=== PATIENT | male | born 1990 | race Caucasian/White ===

== ENCOUNTER 2020-12-14 13:11 | Emergency (ER) | payer SELFPAY ==
[~2020-12-14] VITALS: Ht 177.8 cm; Wt 68.2 kg
[2020-12-14 13:20] VITALS: Ht 177.8 cm; Wt 68.2 kg
[2020-12-14] MEDS ORDERED: KEPPRA250 MG PO (13:22)
[2020-12-14 14:49] VITALS: BP 108/67
== END 2020-12-14 14:45 | disposition home or self-care (01) ==
LOC: D.ER 13:11
DX: S61.211A Laceration without foreign body of left index finger without damage to nail, initial encounter (principal); W26.0XXA Contact with knife, initial encounter; Y93.9 Activity, unspecified; Y92.9 Unspecified place or not applicable